=== PATIENT | female | born 1950 | race Caucasian/White ===

== ENCOUNTER 2017-03-11 14:04 | Emergency (ER) | payer MEDICARE, OTHER ==
[~2017-03-11] VITALS: Ht 152.4 cm; Wt 70.0 kg
[2017-03-11] MEDS ORDERED: DIPHENHYDRAMINE 50 MG/ML, 1ML IM ONE (15:00)
[2017-03-11] MEDS ORDERED: PLEASE ENTER ALLERGIES MC SCH (15:00)
[2017-03-11] MEDS ORDERED: FAMOTIDINE 20 MG TABLET PO ONE (15:00)
[2017-03-11] MEDS ORDERED: DIPHENHYDRAMINE 50 MG/ML, 1ML ONE (15:49)
[2017-03-11] MEDS ORDERED: FAMOTIDINE 20 MG TABLET ONE (15:49)
[2017-03-11 16:40] VITALS: BP 147/61
== END 2017-03-11 16:42 | disposition home or self-care (01) ==
LOC: ED 16:40
DX: L50.9 Urticaria, unspecified (principal); E78.00 Pure hypercholesterolemia, unspecified; I10 Essential (primary) hypertension; J44.9 Chronic obstructive pulmonary disease, unspecified; G62.9 Polyneuropathy, unspecified
CPT/HCPCS: 96372; 99284; J1200; Q0177